=== PATIENT | male | born 1960 | race Caucasian/White ===

== ENCOUNTER 2017-07-31 22:33 | Emergency (ER) | payer OTHER ==
[~2017-07-31] VITALS: Ht 188 cm; Wt 75.0 kg
[~2017-07-31 22:33] MED LIST: CRS350T; CYCL10TA9 PO; FERR27TA; FRS325T; HYDR1TAB75; HYDR1TAB85; LEVE500T99
--- OUTSIDE RECORDS SUMMARY | 2017-07-31 22:40 | XMS REPORT ---
Author Author AKILA MUNOZ Organization [employer] Address Unknown Phone Unavailable Care Team Providers Care Senior [employer] Developer Name Role Phone AKILA MUNOZ CP Unavailable Allergies, Adverse Reactions, Alerts Substance Reaction Event Type N.K.D.A. Info Not Available Non Drug Allergy Problems Problem Type Condition Code Onset Dates Condition Status Problem Acute upper respiratory infections of unspecified site 465.9 Active Problem Unspecified otitis media 382.9 Active Problem Right calf pain M79.661 Active Assessment Right calf pain M79.661 Active Medications Medication Code System Code Instructions Start Date End Date Status Dosage Ibuprofen [facility] [address]-65 800 MG Orally Three times a day Feb 22, 2015 1 tablet Medrol (Lyndon) [facility] [address]-13 4 MG Orally as directed Feb 22, 2015 as directed Ibuprofen [facility] [address]-66 800 mg Apr 29, 2011 1 tablet by Oral route 3 times per day Procedures Procedure Coding System Code Date Office Visit, Est Pt., Level 3 CPT-4 15573 Feb 22, 2015 Vital Signs Date/Time: Feb 22, 2015 Temperature 97.9 F Weight 159.8 lbs Height 73 in BMI 21.08 Index Blood Pressure Diastolic 90 mmHg Blood Pressure Systolic 142 mmHg Cardiac Monitoring Heart Rate 88 bpm Results No Known Results Summary Purpose [employer] Submission
--- OUTSIDE RECORDS SUMMARY | 2017-07-31 22:40 | XMS REPORT | Continuity of Care Document ---
Author Author [facility] Organization [facility] Address Unknown Phone Unavailable Allergies There is no data. Medications There is no data. Problems There is no data. Procedures There is no data. Results There is no data. Encounters ACCT No. Visit Date/Time Discharge Status Pt. Type Provider Facility Loc./Unit Complaint [id number] 08/21/2012 16:28:00 08/21/2012 18:11:00 [facility] Emergency
[2017-07-31] MEDS ORDERED: HYDR-757 PO (22:54)
--- NOTE | 2017-07-31 22:54 | ED Lower Extremity ---
General Stated Complaint: L KNEE SWELLING Source: patient Exam Limitations: no limitations History of Present Illness Date Seen by Provider: Jul 31, 2017 Time Seen by Provider: 22:51 Initial Comments Ambulatory to ER accompanied by his with reports of a one-month history of left knee pain and swelling. He has a prior history of left knee ligamentous and cartilage injury he states that was operated on surgically when he was 20 years old. He cannot elaborate any more specifically than this.He denies fevers or chills or any recent injury. Onset: just prior to arrival Severity: moderate Pain/Injury Location: left knee Method of Injury: unknown Modifying Factors: Worse With Movement Allergies and Home Medications Allergies Coded Allergies: NKANo Known Allergies (Unverified Allergy, Mild, 07/31/17) Home Medications Cyclobenzaprine Hcl 10 Mg Tablet, 1 EACH PO Q8HR PRN FOR MUSCLE SPASMS Prescribed by: ANGELICA CERVANTES on 08/21/12 1743 Hydrocodone/Acetaminophen 1 Each Tablet, 1 EACH PO Q4H PRN for PAIN-MILD TO MODERATE Prescribed by: ALETA ARMSTRONG on 07/31/17 9475 Patient Home Medication List Home Medication List Reviewed: Yes Constitutional: see HPI; No chills, No fever EENTM: see HPI Respiratory: no symptoms reported Cardiovascular: no symptoms reported Genitourinary: no symptoms reported Musculoskeletal: see HPI, joint pain, joint swelling Skin: no symptoms reported Past Mfeiaqk-Vbkfps-Hlvsat Hx Patient Social History Recent Foreign Travel: No Contact w/Someone Who Travel: No Past Medical History Chronic Back Pain Physical Exam Vital Signs Vital Signs - First Documented 07/31/17 22:54 Temp 98.3 Pulse 94 Resp 18 B/P (MAP) 152/92 (112) Pulse Ox 94 Capillary Refill : General Appearance: WD/WN, no apparent distress HEENT: PERRL/EOMI, normal ENT inspection Neck: non-tender, full range of motion Respiratory: no respiratory distress, no accessory muscle use Hips: bilateral hip non-tender, bilateral hip normal inspection, bilateral hip normal range of motion Legs: bilateral leg non-tender, bilateral leg normal inspection, bilateral leg normal range of motion Knees: left knee other (the left knee is about twice the size of the right knee. There is no erythema or ecchymosis. There is a palpable knee effusion.) Ankles: bilateral ankle non-tender, bilateral ankle normal inspection, bilateral ankle normal range of motion Feet: bilateral foot non-tender, bilateral foot normal inspection, bilateral foot normal range of motion Neurologic/Psychiatric: alert, normal mood/affect, oriented x 3 Skin: normal color, warm/dry Procedures/Interventions Additional Procedures: Arthrocentesis Aspirating Progress the knee was scrubbed with Betadine solution and allowed to dry. The skin 1 cm superior and 1 cm lateral to the superior and lateral border of the patellawas anesthetized with 2 mL of 2% lidocaine without epinephrine. A larger 18-gauge 1- 1/2 inch needle was attached to a 20 mL syringe which was then inserteduntil synovial fluid was encountered. I was able to aspirate 45 mL of clear straw- colored synovial fluid. The needle was removed, puncture site covered with a Band-Aid, ice pack applied and held in place with an Damon bandage. Progress/Results/Core Measures My Orders Orders - ALETA ARMSTRONG APRN Knee, Left, 3 Views (07/31/17 22:48) Rx-Hydrocodone/Apap 5-325 Mg (Rx-Vicodin (07/31/17 23:00) Body Fluid Cell Count (07/31/17 22:48) Body Fluid Culture (07/31/17 22:48) Crystals,Body Fluid (07/31/17 22:48) Lidocaine 2% Injection 20 Ml (Xylocaine (07/31/17 23:00) Medications Given in ED Current Medications Medications Dose Ordered Sig/Sam Route Start Time Stop Time Status Last Admin Dose Admin Acetaminophen/ Hydrocodone Bitart 1 ea Q4H PRN PO 07/31/17 23:00 07/31/17 23:03 1 EA Lidocaine HCl 2 ml ONCE ONCE INJ 07/31/17 23:00 07/31/17 23:01 DC 07/31/17 23:03 2 ML Vital Signs/I&O 07/31/17 22:54 Temp 98.3 Pulse 94 Resp 18 B/P (MAP) 152/92 (112) Pulse Ox 94 Departure Communication (Admissions) he has an appointment with the [facility] in [place] tomorrow but didn't feel he could wait that long to be seen. Impression Primary Impression: Knee effusion Disposition: 01 HOME, SELF-CARE Condition: Stable Departure-Patient Inst. Decision time for Depature: 22:53 Referrals: [facility] ELADIO MARTINES (PCP/Family) Primary Care Physician Patient Instructions: Chronic Knee Pain Add. Discharge Instructions: 1. Ice pack to the knee for the remainder of tonight 2.medication as directed for pain 3. Follow-up with [facility] tomorrow. You should discuss with them scheduling an MRI of your knee for further evaluation Scripts Hydrocodone/Acetaminophen ([place] 5-325 Tablet) 1 Each Tablet 1 EACH PO Q4H PRN for PAIN-MILD TO MODERATE, #10 TAB Prov: ALETA ARMSTRONG APRN 07/31/17 ALETA ARMSTRONG APRN Jul 31, 2017 22:54
[2017-07-31] MEDS ORDERED: LIDOCAINE 2% 20 ML (XYLOCAINE) VIAL INJ ONE (23:00)
[2017-07-31] MEDS ORDERED: RX-HYDROCODONE/APAP 5/325 MG #4 TAB PK PO PRN (23:00)
[2017-07-31 23:25] VITALS: BP 149/82
[2017-08-01 00:26] LABS: BODY FLUID APPEARENCE CLOUDY; BODY FLUID COLOR YELLOW; BODY FLUID RBC COUNT 12450 /uL; BODY FLUID SOURCE SYNOVIAL; BODY FLUID WBC TOTAL COUNT 16275 /uL
[2017-08-01 00:57] LABS: LYMPHOCYTES,BODY FLUID 23 %
--- NOTE | 2017-08-01 08:21 | Diagnostic Imaging Report ---
INDICATION: One month history of left knee pain. No known injury. TECHNIQUE: Three views of the left knee CORRELATION STUDY: 05/30/2009. FINDINGS: Mild joint space narrowing particularly medially. There is presence of chondrocalcinosis both medially and laterally progressed since prior study. The cervix appears smooth. There is presence of suprapatellar joint effusion. IMPRESSION: 1. Negative for acute bony abnormality of the knee. Suprapatellar joint effusion. Dictated by: Dictated on workstation # [id number]
== END 2017-07-31 23:23 | disposition home or self-care (01) ==
LOC: EDUNIT# 22:33 → ER 22:34
DX: M25.462 Effusion, left knee (principal); Z88.1 Allergy status to other antibiotic agents
CPT/HCPCS: 73562; 87070; 87205; 89051; 89060